=== PATIENT | female | born 1985 | race Caucasian/White ===

== ENCOUNTER 2016-08-25 10:47 | Emergency (ER) | payer OTHER ==
[~2016-08-25] VITALS: Ht 172.7 cm; Wt 114.7 kg
[~2016-08-25 10:47] MED LIST: ALBUTEROL INH INH; CHOL10003 PO; CYAN2500 PO; ENAL2.5T PO; HYDR25TA6 PO; LORA-439 PO; METF750T2 PO; MULT-34 PO; OMEG1CAP12 PO; SPIR25TA3 PO
[2016-08-25 10:51] VITALS: BP 130/88
[2016-08-25] MEDS ORDERED: BACITRACIN ZINC OINT 500U/GM, 0.9 GM ONE (11:21)
[2016-08-25 12:03] LABS: HIV 1&2 ANTIBODY SCREEN Nonreactive (Nonreactive); HIV-1 p24 ANTIGEN Nonreactive (Nonreactive)
[2016-08-25 12:25] LABS: HEP B SURF. AB > 1000.0 mIU/mL (0.0-10.0)
[2016-08-25 13:04] LABS: HEPATITIS C VIRUS ANTIBODY Nonreactive (Nonreactive)
== END 2016-08-25 11:42 | disposition home or self-care (01) ==
LOC: ED 11:33
DX: S61.235A Puncture wound without foreign body of left ring finger without damage to nail, initial encounter (principal); E11.9 Type 2 diabetes mellitus without complications; I10 Essential (primary) hypertension; J45.909 Unspecified asthma, uncomplicated; Z86.718 Personal history of other venous thrombosis and embolism; W46.0XXA Contact with hypodermic needle, initial encounter; Y93.89 Activity, other specified; Y99.0 Civilian activity done for income or pay; Y92.69 Other specified industrial and construction area as the place of occurrence of the external cause
CPT/HCPCS: 36415; 86703; 86705; 86706; 86803; 87340; 87899; 99284; G0435

== ENCOUNTER 2017-09-13 21:28 | Emergency (ER) | payer OTHER ==
[~2017-09-13] VITALS: Ht 172.7 cm; Wt 108.0 kg
[~2017-09-13 21:28] MED LIST changes: -OMEG1CAP12 PO; +OMEG1CAP23 PO
[2017-09-13 21:30] VITALS: BP 151/87
[2017-09-13] MEDS ORDERED: IBUPROFEN 200 MG TABLET PO ONE (23:00)
[2017-09-13] MEDS ORDERED: IBUPROFEN 200 MG TABLET ONE (23:15)
== END 2017-09-13 23:47 | disposition home or self-care (01) ==
LOC: ED 23:40
DX: S93.622A Sprain of tarsometatarsal ligament of left foot, initial encounter (principal); W22.8XXA Striking against or struck by other objects, initial encounter; Y93.89 Activity, other specified; Y92.89 Other specified places as the place of occurrence of the external cause; Y99.0 Civilian activity done for income or pay; Z87.891 Personal history of nicotine dependence
CPT/HCPCS: 99284